=== PATIENT | male | born 1960 | race Caucasian/White ===

== ENCOUNTER 2022-05-13 16:25 | Emergency (ER) | payer OTHER ==
--- OUTSIDE RECORDS SUMMARY | 2022-05-13 16:31 | XMS REPORT | Continuity of Care Document ---
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 2021-01-27 09:14:00 170.2 cm [facility] Body weight 2021-01-27 09:14:00 77.565 kg [facility] BMI 2021-01-27 09:14:00 26.78 kg/m2 [facility] Procedures Procedure Date / Time Performed Performing Clinician [facility] e SARS-COV-2, FLU A/B, RSV 2021-01-27 13:08:00 Hailey Kay [facility] SARS-COV-2, FLU A/B, & RSV 2021-01-27 13:08:[address] [facility] CONSULT CLINICAL CASE 2021-01-27 11:19:[address] [facility] MANAGEMENT (RN/SW) CONSULT CLINICAL CASE 2021-01-27 10:58:00 ApfelLonnie [facility] MANAGEMENT (RN/SW) CBC/DIFF 2021-01-27 10:40:00 ApfelLonnie [facility] BASIC METABOLIC PANEL 2021-01-27 10:40:00 ApfelLonnie [facility] CBC 2021-01-27 10:40:00 ApfelLonnie [facility] 12 LEAD EKG 2021-01-27 09:15:33 [facility] TO PHYSICAL 2020-11-25 10:27:54 Wilian Hoffmann [facility] THERAPY BASIC METABOLIC PANEL 2020-11-23 07:02:00 [facility] 2020-11-22 16:10:[address] [facility] URINE DRUG SCREEN 2020-11-22 11:35:00 Dony Garza lt URINALYSIS 2020-11-22 11:35:[address] [facility] URINALYSIS 2020-11-22 11:35:00 [facility] SEQUENTIAL COMPRESSION 2020-11-22 09:54:00 [facility]-COV-2, FLU A/B, RSV 2020-11-22 07:10:00 O'Carlos Hurley [facility] CORONAVIRUS, COVID-19, SANDRINE 2020-11-22 07:10:00 OCarlos Britt [facility] 12 LEAD EKG 2020-11-22 07:09:33 [facility] VBG POC 2020-11-22 07:07:00 Sekou [facility] BMP POC 2020-11-22 07:07:00 Sekou [facility] CREATININE POC 2020-11-22 07:07:00 Sekou [facility] CBC/DIFF 2020-11-22 07:06:00 Carlos Martinez h COMPREHENSIVE METABOLIC 2020-11-22 07:06:00 Carlos [facility] PANEL PT/INR/PTT 2020-11-22 07:06:00 Carmen'Carlos Hurley h ALCOHOL, MEDICAL USE ONLY 2020-11-22 07:06:00 Carlos [facility] SALICYLATE 2020-11-22 07:06:00 Carlos Martinez h CBC 2020-11-22 07:06:00 Carlos Martinez h ALBUMIN 2020-11-22 07:06:00 Petra Bland h CK, TOTAL 2020-11-22 07:06:00 [facility]el [facility] CREATINE KINASE MB (CKMB) 2020-11-22 07:06:[address] [facility] CONSULT CLINICAL CASE 2020-11-22 07:05:51 Carlos [facility] MANAGEMENT (RN/SW) TROPONIN I POC 2020-11-22 07:05:00 Sekou [facility] BASIC METABOLIC PANEL 2020-07-11 21:28:00 [facility] CBC/DIFF 2020-07-11 21:28:00 Lisa Chahal CBC 2020-07-11 21:28:00 Lisa Chahal CORONAVIRUS, COVID-19, SANDRINE 2020-07-11 21:28:00 Noe Chahal Health CONSULT CLINICAL CASE 2020-07-11 18:14:55 Jocelyn Gonzalez [facility] MANAGEMENT (RN/SW) CONSULT CLINICAL CASE 2020-07-11 17:29:24 Alma Medrano [facility] MANAGEMENT (RN/SW) URINE DRUG SCREEN 2020-07-11 02:31:00 Vlad Duncan [facility] URINALYSIS 2020-07-11 02:31:00 Vlad Duncan [facility] URINALYSIS 2020-07-11 02:31:00 Vlad Duncan [facility] HEMOGLOBIN A1C 2020-06-11 11:15:00 Luz Dominguez [facility] LIPID PROFILE 2020-06-07 06:06:00 Janae Toussaint [facility] ECHG EKG PROC 12 LEAD EKG; 2020-06-06 12:20:[address] [facility] TRACING ONLY T URINALYSIS 2020-06-06 04:18:00 Christel Montoya [facility] URINALYSIS 2020-06-06 04:18:00 Christel Montoya [facility] URINE DRUG SCREEN 2020-06-06 04:18:00 Amisha Sanchez [facility] PT/INR/PTT 2020-06-06 02:36:00 Amisha Sanchez [facility] h CORONAVIRUS, COVID-19, SANDRINE 2020-06-06 02:35:00 Amisha Sanchez [facility] CONSULT CLINICAL CASE 2020-06-06 02:06:26 Amisha Sanchez [facility] MANAGEMENT (RN/SW) TROPONIN I POC 2020-06-06 01:01:[address] [facility] CBC/DIFF 2020-06-06 00:53:00 Christel Montoya [facility] LIVER PROFILE 2020-06-06 00:53:00 Christel Montoya [facility] BASIC METABOLIC PANEL 2020-06-06 00:53:00 Christel [facility] LIPASE 2020-06-06 00:53:00 Estephanie Montoyaissa [facility] HIV AG/AB COMBO ROUTINE 2020-06-06 00:53:00 Christel Montoya [facility] SCREENING CBC 2020-06-06 00:53:00 Christel Montoya [facility] ECHG EKG PROC 12 LEAD EKG; 2020-06-06 00:48:[address] [facility] TRACING ONLY Plan of Care Planned Activity Planned Date Details Comments Source Future Scheduled 2022-06-10 IMM Influenza Seasonal [facility] Test 00:00:00 (>/= 19 yrs) [code = IMM Influenza Seasonal (>/= 19 yrs)] Future Scheduled 2022-05-10 HEPATITIS B VACCINES Met [facility] Test 07:29:58 (1 of 3 - 3-dose series) [code = HEPATITIS B VACCINES (1 of 3 - 3-dose series)] Future Scheduled 2022-05-10 COVID-19 VACCINE (#1) [facility] Test 07:29:58 [code = COVID-19 VACCINE (#1)] Future Scheduled 2022-05-10 Pneumococcal Vaccine: [facility] Test 07:29:58 Pediatrics (0 to 5 Years) and At-Risk Patients (6 to 64 Years) (1 - PCV) [code = Pneumococcal Vaccine: Pediatrics (0 to 5 Years) and At-Risk Patients (6 to 64 Years) (1 - PCV)] Future Scheduled 2022-05-10 Hepatitis C screening [facility] Test 07:29:58 (procedure) [code = 449003816] Future Scheduled 2022-05-10 COLONOSCOPY SCREENING [facility] Test 07:29:58 [code = COLONOSCOPY SCREENING] Future Scheduled 2022-05-10 SHINGLES VACCINES (1 Met [facility] Test 07:29:58 of 2) [code = SHINGLES VACCINES (1 of 2)] Future Scheduled 2022-05-10 INFLUENZA VACCINE Method [facility] Test 07:29:58 [code = INFLUENZA VACCINE] Future Scheduled 2021-06-10 IMM Influenza Seasonal [facility] Test 00:00:00 Jun to November (>/= 19 yrs) [code = IMM Influenza Seasonal Jun to November (>/= 19 yrs)] Future Scheduled 2021-06-10 IMM Influenza Seasonal [facility] Test 00:00:00 Jun to November (>/= 19 yrs) [code = IMM Influenza Seasonal Oct to November (>/= 19 yrs)] Future Scheduled 2021-06-07 CORONARY ARTERY [facility] 00:00:00 DISEASE AGE 18 AND UP [code = CORONARY ARTERY DISEASE AGE 18 AND UP] Future Scheduled 2021-06-07 CORONARY ARTERY [facility] Test 00:00:00 DISEASE AGE 18 AND UP [code = CORONARY ARTERY DISEASE AGE 18 AND UP] Future Scheduled 2021-06-07 CORONARY ARTERY [facility] Test 00:00:00 DISEASE AGE 18 AND UP [code = CORONARY ARTERY DISEASE AGE 18 AND UP] Future Scheduled 2012 [facility] 00:00:00 malignant neoplasm of colon (procedure) [code = 198858054] Future Scheduled 2012 [facility] 00:00:00 malignant neoplasm of colon (procedure) [code = 495680413] Future Scheduled 2012 [facility] 00:00:00 malignant neoplasm of colon (procedure) [code = 331289806] Future Scheduled 1974 COVID-19 Vaccine (1) [facility] 00:00:00 [code = COVID-19 Vaccine (1)] Future Scheduled 1974 COVID-19 Vaccine (1) [facility] Test 00:00:00 [code = COVID-19 Vaccine (1)] Future Scheduled 1968 Imm Pneumococcal 0-64 [facility] Test 00:00:00 (1 - PCV) [code = Imm Pneumococcal 0-64 (1 - PCV)] Future Scheduled 1962 COVID-19 Vaccine (#1) [facility] Test 00:00:00 [code = COVID-19 Vaccine (#1)] Future Scheduled 1962 Fluoride Varnish [code [facility] Test 00:00:00 = Fluoride Varnish] Encounters Start End Encounter Admission Attending Care Care Encounter Source Date/Time Date/Time Type Type Clinicians Facility Department ID 2021-02-09 Inpatient [facility] [id number] [facility] 14:08:00 61 2021-02-09 Inpatient [facility] [id number] [facility] 14:08:00 61 2021-02-15 2021-02-15 Outpatient BATSHEVA SMITH [facility] [id number] [place] 00:00:00 00:00:00 Health 2021-02-10 2021-02-10 Outpatient ASHIA ANG [id number] [facility] 12:15:00 12:15:00 00 kathya Lau 2021-02-10 2021-02-10 Outpatient ASHIA ANG [id number] [facility] 12:15:00 12:15:00 00 kathya Lau 2021-02-01 2021-02-01 Outpatient KRZYSZTOF, [facility] [id number] [place] 00:00:00 00:00:00 [facility] 2021-01-25 2021-01-25 Outpatient JEANNIE, [facility] [id number] [place] 00:00:00 00:00:00 [facility] 2020-12-09 2020-12-10 Inpatient E MARY ANN, [facility] 7501 10:38:00 18:45:[address] [facility] 2020-12-08 2020-12-08 Emergency E WIA, [facility] 7500 10:41:00 14:56:[address] [facility] 2020-11-22 2020-11-22 Emergency DAVIS, [facility] [id number] [place] 07:10:32 07:10:34 MILY Limon 2020-09-05 2020-09-05 Emergency JENNIFFER LYNN [facility] [id number] [employer] 00:00:00 00:00:00 367 Method i 2020-08-03 2020-08-04 Emergency YOLANDA, [place] [address] [id number] [employer] 00:00:00 00:00:00 EBONY 408 Method i 2020-06-03 2020-06-03 Emergency 3 Jacquelyn, [facility] JOSE JUAN [id number] 15:44:00 16:35:00 [facility] 2020-06-03 2020-06-[address] [facility] JOSE JUAN [id number] 15:44:00 15:44:00 [id number] [facility] Results Test Description Test Time Test Comments Results Result Comments Source Drug Screen,Urine 2021-02-09 15:16:00 Test Item Value Reference Range Interpretation Comme nts PCP Phencyclidine Screen,Urine Negative Negative (test code = PCPU) Amphetamine Screen,Urine (test Positive Negative A Confirmation by GC/MS not code = AMPU) routinely perfo rmed. Ifconfirmation is required, an order must be p laced. Methadone Screen,Urine (test code Negative Negative = METHU) Opiate Screen,Urine (test code = Positive Negative A UOPIS) Barbituates Screen,Urine (test Negative Negative code = BARBU) Benzodiazepines Screen,Urine Positive Negative A (test code = UBENZS) Cocaine Screen,Urine (test code = Positive Negative A UCOCS) Cannabinoid Screen,Urine (test Positive Negative A code = UTHCS) Propoxyphene Screen, Urine (test Negative Negative code = UPROP) Coronavirus PCR, COVID19 [id number] 15:04:00 Test Item Value Reference Range Interpretation Comments Coronavirus PCR, For use under Emergency COVID19 Rapid (test Use Authorization (EUA) code = SARSCOV2) only. Coronavirus PCR, Reference Range: COVID19 Rapid (test Negative code = BZWHZCD25.1) SARS-CoV-2 PCR Result: Negative by PCR (test code = SARS-CoV-2 PCR Result:) COVID-19 Status: AsymptomaticComplete Blood Count Auto [id number] 14:57:00 Test Item Value Reference Range Interpretation Comments White Blood Count (test code = 11.0 x10 3/uL 4.4-10.5 H WBCT) Red Blood Count (test code = 4.76 x10 6/uL 4.10-5.70 N RBC) Hemoglobin (test code = HGBT) 14.6 g/dL 13.4-17.4 N Hematocrit (test code = HCTT) 46.0 % 38.7-52.0 N Mean Corpuscular Volume (test 96.60 fL 80.00-100.00 N code = MCV) Mean Corpuscular Hemoglobin 30.7 pg 27.0-32.5 N (test code = MCH) Mean Corpuscular HGB Conc 31.70 g/dL 32.00-37.50 L (test code = MCHC) RDW Coefficient of Variation 13.0 % 11.5-14.5 N (test code = RDWCV) Platelet Count (test code = 241.0 x10 3/uL 140.0-440.0 N PLTT) Mean Platelet Volume (test 10.1 fL code = MPV) Immature Granulocytes % (Auto) 0.3 % 0.0-5.0 N (test code = IMMGRAN%) Neutrophils % (Auto) (test 79.5 % 36.0-70.0 H code = NE%) Lymphocytes % (Auto) (test 14.6 % 12.0-44.0 N code = LY%) Monocytes % (Auto) (test code 4.8 % 0.0-11.0 N = MO%) Eosinophils % (Auto) (test 0.5 % 0.0-7.0 N code = EO%) Basophils % (Auto) (test code 0.3 % 0.0-2.0 N = BA%) Immature Granulocytes # (Auto) 0.03 x10 3/uL (test code = IMMGRAN#) Neutrophils # (Auto) (test 8.7 x10 3/uL 1.6-7.4 H code = NE#) Lymphocytes # (Auto) (test 1.61 x10 3/uL 0.50-4.60 N code = LY#) Monocytes # (Auto) (test code 0.53 x10 3/uL 0.00-1.20 N = MO#) Eosinophils # (Auto) (test 0.06 x10 3/uL 0.00-0.74 N code = EO#) Basophils # (Auto) (test code 0.03 x10 3/uL 0.00-0.21 N = BA#) nRBC Abs (test code = NRBCA) 0 nRBC Pct (test code = NRBCP) 0 % Comprehensive Metabolic [id number] 14:57:00 Test Item Value Reference Range Interpretation Comments SODIUM (test code = NA) 141.0 mmol/L 136.0-145.0 N Potassium,K (test code = K) 3.7 mmol/L 3.0-5.1 N Chloride (test code = CL) 111 mmol/L 98-107 H Carbon Dioxide (test code = 22 mmol/L 20-31 N CO2) Anion Gap (test code = GAP) 8 mmol/L 5-15 N Blood Urea Nitrogen (test code 10 mg/dL 9-23 N = BUN) Creatinine (test code = CREATT) 0.77 mg/dL 0.55-1.02 N Creatinine Clr Calc Pharmacy 106.97 mL/min (test code = CRCLPHA) Estimated GFR ( Anjelica > 60 mL/min/1.73m2 (test code = EGFRAA) Estimated GFR (Non Afr Anjelica > 60 mL/min/1.73m2 (test code = EGFRNAA) BUN/Creatinine Ratio (test code 13 ratio 10-20 N = BCRATIO) Glucose (test code = GLU) 83 mg/dL 74-106 N Osmolality,Calculated (test 289.5 code = OSMOC) Calcium (test code = CA) 8.8 mg/dL 8.3-10.6 N Bilirubin,Total (test code = 0.5 mg/dL 0.2-1.1 N BILIT) Aspartate Amino Transferase 41 U/L 0-34 H (test code = AST) Alanine Aminotransferase (test 28 U/L 10-49 N code = ALT) Total Protein (test code = TP) 6.7 g/dL 5.7-8.2 N Albumin Level (test code = ALB) 3.8 g/dL 3.2-4.8 N Globulin (test code = GLOB) 2.9 mg/dL 2.3-3.5 N Albumin/Globulin Ratio (test 1.3 ratio 0.8-2.0 N code = AGRATIO) Alkaline Phosphatase (test code 103 U/L 46-116 N = ALP) Ethanol [id number] 14:57:00 Test Item Value Reference Range Interpretation Comments Ethanol (test code = ETOH) 102 mg/dL Coronavirus (CoVID-19), Influenza A/B viral [id number] 14:07:00 Test Item Value Reference Range Interpretation Comments COVID-19 (SARS-COV-2) Not Detected Not Detected (test code = 08536-9) Influenza A (test code Not Detected Not Detected = 14374-1) Influenza B (test code Not Detected Not Detected = 62866-0) NIMA (test code = NIMA) INTERPRETATION: The thania SARS-CoV-2 & Influenza A/B assay uses real-time reverse transcriptase polymerase chain reaction (RT-PCR) technology to rapidly detect and differentiate between SARS-CoV-2, influenza A, and influenza B viruses from nasopharyngeal and nasal swab specimens. Positive results for any one of the three viruses are indicative of active infection. Influenza A negative and Influenza B negative results should be considered presumptive in samples that have a positive SARS-CoV-2 result. Negative results for SARS-CoV-2 virus do not preclude SARS-CoV-2 infection and should not be used as the sole basis for patient management decisions. Clinical correlation with patient history and other diagnostic information is recommended. For invalid results, a second sample should be submitted for repeat testing. COMMENT: In accordance with the FDA's guidance document "Policy for Diagnostic Tests for Coronavirus Disease-2019 during the Public Health Emergency", this test was developed, and its performance characteristics were verified by the [facility] molecular diagnostics laboratory and is authorized for clinical diagnostic use. This laboratory is certified under the Clinical Laboratory Improvement Amendments (CLIA) as qualified to perform high complexity clinical laboratory testing. Lab Interpretation Normal (test code = 39264-9) [facility]), Influenza A/B viral [id number] 14:07:00 Test Item Value Reference Range Interpretation Comments COVID-19 (SARS-COV-2) Not Detected Not Detected (test code = 63147-3) Influenza A (test code Not Detected Not Detected = 69136-6) Influenza B (test code Not Detected Not Detected = 92741-2) NIMA (test code = NIMA) INTERPRETATION: The thania SARS-CoV-2 & Influenza A/B assay uses real-time reverse transcriptase polymerase chain reaction (RT-PCR) technology to rapidly detect and differentiate between SARS-CoV-2, influenza A, and influenza B viruses from nasopharyngeal and nasal swab specimens. Positive results for any one of the three viruses are indicative of active infection. Influenza A negative and Influenza B negative results should be considered presumptive in samples that have a positive SARS-CoV-2 result. Negative results for SARS-CoV-2 virus do not preclude SARS-CoV-2 infection and should not be used as the sole basis for patient management decisions. Clinical correlation with patient history and other diagnostic information is recommended. For invalid results, a second sample should be submitted for repeat testing. COMMENT: In accordance with the FDA's guidance document "Policy for Diagnostic Tests for Coronavirus Disease-2019 during the Public Health Emergency", this test was developed, and its performance characteristics were verified by the [facility] molecular diagnostics laboratory and is authorized for clinical diagnostic use. This laboratory is certified under the Clinical Laboratory Improvement Amendments (CLIA) as qualified to perform high complexity clinical laboratory testing. Lab Interpretation Normal (test code = 29704-7) [facility] Metabolic [id number] 11:41:00 Test Item Value Reference Range Interpretation Comments Sodium (test code = 141 mmol/L 096-663 2503-2) Potassium (test code = 3.6 mmol/L 3.5-5.1 2823-3) Chloride (test code = 105 mmol/L 98-107 2075-0) CO2 (test code = 25 mmol/L 21-31 34961585) Urea Nitrogen (test 17.0 mg/dL 7-25 code = 91739041) Creatinine (test code = 0.8 mg/dL 0.7-1.3 24989185) Glucose (test code = 77 mg/dL 70-110 21930603) Calcium (test code = 9.3 mg/dL 8.6-10.3 62433310) eGFR If non- Am >90 See_Comment [Aut omated message] (test code = 62618963) The s ystem which generated this result transmit romaine reference range : >=90 mL/min/1.7 3 m2. The reference r octaviano was not used to interpret this result as normal/abnormal . Anion Gap (test code = 11 mmol/L 01-23 35264928) Lab Interpretation Normal (test code = 13710-3) [facility] Metabolic [id number] 11:41:00 Test Item Value Reference Range Interpretation Comments Sodium (test code = 141 mmol/L 073-608 8582-2) Potassium (test code = 3.6 mmol/L 3.5-5.1 2823-3) Chloride (test code = 105 mmol/L 98-107 2075-0) CO2 (test code = 25 mmol/L 40862150) Urea Nitrogen (test 17.0 mg/dL 725 code = 08766158) Creatinine (test code = 0.8 mg/dL 0.7-1.3 97118070) Glucose (test code = 77 mg/dL 70-110 94261004) Calcium (test code = 9.3 mg/dL 8.6-10.3 90320231) eGFR If non- Am >90 See_Comment [Aut omated message] (test code = 73677645) The s ystem which generated this result transmit romaine reference range : >=90 mL/min/1.7 3 m2. The reference r octaviano was not used to interpret this result as normal/abnormal . Anion Gap (test code = 11 mmol/L 01-23 37904791) Lab Interpretation Normal (test code = 97388-4) [id number] 11:17:00 Test Item Value Reference Range Interpretation Comments WBC (test code = 6690-2) 8.9 K/uL 4.5-12 RBC (test code = 789-8) 4.92 See_Comment [Au tomated message] The system [employer] generated this result transmit romaine reference range : 4.60 - 6.20 M/u L. The reference r octaviano was not used to interpret this result as normal/abnormal . Hemoglobin (test code = 15.0 g/dL 14-18 718-7) Hematocrit (test code = 45.7 % 40-54 4544-3) MCV (test code = 787-2) 92.9 fL 82-92 H MCH (test code = 785-6) 30.5 pg 27-31 MCHC (test code = 786-4) 32.8 g/dL 32-36 RDW (test code = 46.0 fL 35.1-43.9 H 75581-2) Platelet (test code = 243 K/uL 150-400 777-3) Mean Platelet Volume 9.8 fL 9.4-12.4 (test code = 96471-4) Percent NRBC (test code 0.0 % = 03688588) Neutrophil (test code = 78.3 % 34-67.9 H 770-8) Lymphs (test code = 11.2 % 21.8-50 L 736-9) Monocytes (test code = 9.1 % 5.3-12 5905-5) Eos (test code = 713-8) 0.6 % 0.8-5 L Basos (test code = 0.3 % 0.2-1.2 706-2) Immature Granulocytes 0.5 % 0-0.5 (test code = 00241505) Neutrophils (Absolute) 6.94 K/uL 1.78-5.36 H (test code = 76465117) Lymphs (Absolute) (test 0.99 K/uL 1.32-3.57 L code = 61845077) Monocytes(Absolute) 0.81 K/uL 0.3-0.82 (test code = 67005610) Eos (Absolute) (test 0.05 K/uL 0.04-0.54 code = 09893489) Baso (Absolute) (test 0.03 K/uL 0.01-0.08 code = 18625409) Immature Grans (Abs) 0.04 K/uL 0-0.03 H (test code = 60406862) Absolute NRBC (test code 0.00 K/uL = 89949330) Lab Interpretation (test Abnormal code = 33202-0) [facility]/[id number] 11:17:00 Test Item Value Reference Range Interpretation Comments WBC (test code = 6690-2) 8.9 K/uL 4.5-12 RBC (test code = 789-8) 4.92 See_Comment [Au tomated message] The system [employer] generated this result transmit romaine reference range : 4.60 - 6.20 M/u L. The reference r octaviano was not used to interpret this result as normal/abnormal . Hemoglobin (test code = 15.0 g/dL 14-18 718-7) Hematocrit (test code = 45.7 % 40-54 4544-3) MCV (test code = 787-2) 92.9 fL 82-92 H MCH (test code = 785-6) 30.5 pg 27-31 MCHC (test code = 786-4) 32.8 g/dL 32-36 RDW (test code = 46.0 fL 35.1-43.9 H 50924-6) Platelet (test code = 243 K/uL 150-400 777-3) Mean Platelet Volume 9.8 fL 9.4-12.4 (test code = 57827-8) Percent NRBC (test code 0.0 % = 10364239) Neutrophil (test code = 78.3 % 34-67.9 H 770-8) Lymphs (test code = 11.2 % 21.8-50 L 736-9) Monocytes (test code = 9.1 % 5.3-12 5905-5) Eos (test code = 713-8) 0.6 % 0.8-5 L Basos (test code = 0.3 % 0.2-1.2 706-2) Immature Granulocytes 0.5 % 0-0.5 (test code = 01988020) Neutrophils (Absolute) 6.94 K/uL 1.78-5.36 H (test code = 46228972) Lymphs (Absolute) (test 0.99 K/uL 1.32-3.57 L code = 29092499) Monocytes(Absolute) 0.81 K/uL 0.3-0.82 (test code = 12271677) Eos (Absolute) (test 0.05 K/uL 0.04-0.54 code = 25329766) Baso (Absolute) (test 0.03 K/uL 0.01-0.08 code = 19605469) Immature Grans (Abs) 0.04 K/uL 0-0.03 H (test code = 16205460) Absolute NRBC (test code 0.00 K/uL = 93073600) Lab Interpretation (test Abnormal code = 07941-0) [place] [address] LEAD [id number] 09:15:[address] [facility] Test Date: 3209-93-76Can Name: LAYLA KHAN Department: 5520Patient ID: [id number] Room: Gender: M Chief Security Officer: [id number]: 1960 Requested By: NEDRA CISNEROS Order Number: [id number] Reading MD: Tk Nichole MeasurementsIntervals [place] Rate: 96 P: 67PR: 146 QRS: -47QRSD: 83 T: 53QT: 331 QTc: 384 Interpretive StatementsSINUS RHYTHMPOSSIBLE RIGHT VENTRICULAR CONDUCTION DELAY [RSR (QR) IN V1/V2]LEFT ANTERIOR FASCICULAR BLOCK [QRS AXIS <= -45, QR IN I, RS IN II]Electronically Signed On 01-27-2021 9:27:41 CDT by Tk [place] [address] LEAD [id number] 09:15:[address] [facility] Test Date: 2898-54-45Dna Name: LAYLA KHAN Department: 5520Patient ID: [id number] Room: Gender: M Chief Security Officer: [id number]: 1960 Requested By: NEDRA CISNEROS Order Number: [id number] Reading MD: Tk Nichole MeasurementsIntervals [place] Rate: 96 P: 67PR: 146QRS: -47QRSD: 83 T: 53QT: 331 QTc: 384 Interpretive StatementsSINUS RHYTHMPOSSIBLE RIGHT VENTRICULAR CONDUCTION DELAY [RSR (QR) IN V1/V2]LEFT ANTERIOR FASCICULAR BLOCK [QRS AXIS <= -45, QR IN I, RSIN II]Electronically Signed On 01-27-2021 9:27:41 CDT by Kylienadia JamesGeorginaunm [facility] [employer]/[id number] 16:53:00 Test Item Value Reference Range Interpretation Comments PT (test code = 5902-2) 13.6 See_Comment [Au tomated message] The system [employer] generated this result transmitted ref erence range: 11.7 - 1 4.5 Seconds. The re ference range was not u sed to interpret this result as normal/abnor mal. INR (test code = 1.1 Refer to INR 2.0 - 3.0 f or moderate 00049608) ranges intensity anticoagulation 2.5 - 3.5 for high in tensity anticoagulation Lab Interpretation Normal (test code = 73254-7) [employer]/[id number] 16:53:00 Test Item Value Reference Range Interpretation Comments PT (test code = 5902-2) 13.6 See_Comment [Au tomated message] The system [employer] generated this result transmitted ref erence range: 11.7 - 1 4.5 Seconds. The re ference range was not u sed to interpret this result as normal/abnor mal. INR (test code = 1.1 Refer to INR 2.0 - 3.0 f or moderate 12740936) ranges intensity anticoagulation 2.5 - 3.5 for high in tensity anticoagulation Lab Interpretation Normal (test code = 67011-0) [facility] [id number] 12:56:00 Test Item Value Reference Range Interpretation Comments pH, Ur (test code = 6.0 91485354) Opiate, Ur (test code Negative Negative Calibr ated Standard: = 57402-3) Morphine Positi ve if urine level > o r = 300 ng/dL Amphetamine (test code Negative Negative Calib rated Standard: = 49575-9) D-Methamphetami ne Positive if uri ne level > or = 1000 ng/ mL Barbiturate (test code Negative Negative Calib rated Standard: = 74371-8) Secobarbital Po sitive if urine level is > or = 200 ng/mL Benzodiazepine (test Negative Negative Calibra romaine Standard: code = 18935-0) Lormethazepa m Positive if urine level is > or = 200 ng/mL Cocaine (test code = Positive Negative A Calibra romaine Standard: 24270-1) Benzoylecgonine Positive if uri ne level > or = 300 ng/d L PCP (test code = Negative Negative Calibrated Standard: 72995-0) Phencyclidine P ositive if urine level > or = 25 ng/dL Cannabinoid (test code Positive Negative A Calib rated Standard: 11 = 44404-7) nor-delta(9)-TH C carboxylic acid Positive if uri ne level > or = 50 ng/mL Lab Interpretation Abnormal (test code = 77227-0) [facility] [id number] 12:56:00 Test Item Value Reference Range Interpretation Comments pH, Ur (test code = 6.0 03322754) Opiate, Ur (test code Negative Negative Calibr ated Standard: = 81188-7) Morphine Positi ve if urine level > o r = 300 ng/dL Amphetamine (test code Negative Negative Calib rated Standard: = 11842-0) D-Methamphetami ne Positive if uri ne level > or = 1000 ng/ mL Barbiturate (test code Negative Negative Calib rated Standard: = 19692-9) Secobarbital Po sitive if urine level is > or = 200 ng/mL Benzodiazepine (test Negative Negative Calibra romaine Standard: code = 37983-8) Lormethazepa m Positive if urine level is > or = 200 ng/mL Cocaine (test code = Positive Negative A Calibra romaine Standard: 12980-9) Benzoylecgonine Positive if uri ne level > or = 300 ng/d L PCP (test code = Negative Negative Calibrated Standard: 18771-6) Phencyclidine P ositive if urine level > or = 25 ng/dL Cannabinoid (test code Positive Negative A Calib rated Standard: 11 = 26597-3) nor-delta(9)-TH C carboxylic acid Positive if uri ne level > or = 50 ng/mL Lab Interpretation Abnormal (test code = 13295-9) [facility] [id number] 12:14:00 Test Item Value Reference Range Interpretation Comments COVID-19 Not Detected Not Detected INTERPRETATION: (SARS-COV-2) (test No detect able code = 67210-6) levels of SARS-CoV-2 Coronavirus (COVID-19) were present in this patient's sampl e by this test. A not detected result does not exclude the possibility of active infectio n with this virus due to other factors that ma y affect the results such as a poorly collected sample, viral titers below th e limit of detection of th e assay, and the infrequent possibility of inhibitors in the sample. Thi s result should b e interpreted in conjunction wit h clinical, radiographic, and other laboratory findings and should not be used as the andrew e indicator of active infectio n with SARS-CoV-2 Coronavirus (COVID-19). NIMA (test code = COMMENT: This NIMA) [employer] SARS-CoV-2 molecular diagnostic assay utilizes Anesthesia Assistant Mediated Amplification (TMA) technology to rapidly detect the SARS-CoV-2 (COVID-19) virus from respiratory samples. In accordance with the FDA's guidance document "Policy for Diagnostic Tests for Coronavirus Disease-2019 during the Public Health Emergency", this test was developed, and its performance characteristics were verified by the [facility] molecular diagnostics laboratory and is authorized for clinical diagnostic use. This laboratory is certified under the Clinical Laboratory Improvement Amendments (CLIA) as qualified to perform high complexity clinical laboratory testing. Lab Interpretation Normal (test code = 19690-8) [facility], [id number] 12:14:00 Test Item Value Reference Range Interpretation Comments COVID-19 Not Detected Not Detected INTERPRETATION: (SARS-COV-2) (test No detect able code = 18582-0) levels of SARS-CoV-2 Coronavirus (COVID-19) were present in this patient's sampl e by this test. A not detected result does not exclude the possibility of active infectio n with this virus due to other factors that ma y affect the results such as a poorly collected sample, viral titers below th e limit of detection of th e assay, and the infrequent possibility of inhibitors in the sample. Thi s result should b e interpreted in conjunction wit h clinical, radiographic, and other laboratory findings and should not be used as the andrew e indicator of active infectio n with SARS-CoV-2 Coronavirus (COVID-19). NIMA (test code = COMMENT: This NIMA) [employer] SARS-CoV-2 molecular diagnostic assay utilizes Anesthesia Assistant Mediated Amplification (TMA) technology to rapidly detect the SARS-CoV-2 (COVID-19) virus from respiratory samples. In accordance with the FDA's guidance document "Policy for Diagnostic Tests for Coronavirus Disease-2019 during the Public Health Emergency", this test was developed, and its performance characteristics were verified by the [facility] molecular diagnostics laboratory and is authorized for clinical diagnostic use. This laboratory is certified under the Clinical Laboratory Improvement Amendments (CLIA) as qualified to perform high complexity clinical laboratory testing. Lab Interpretation Normal (test code = 02771-0) [facility] HospitalAcojhaHxbxweorus9550-49-02 12:01:00 Test Item Value Reference Range Interpretation Comments Color (test code = Yellow Colorless, Straw, 88009855) Yellow Clarity (test code = Clear Clear 77427208) Spec Limestone, Ur (test 1.023 1.001-1.035 code = 88667052) pH, Ur (test code = 6.0 5.0-8.0 42097423) Protein, Ur (test code 1+ Negative mg/dL A = 08714280) Glucose, Ur (test code Negative Negative mg/dL = 88560352) Ketone, Ur (test code = trace Negative mg/dL A 01381645) Bilirubin, Ur (test Negative Negative mg/dL code = 71684685) Nitrite, Ur (test code Negative Negative = 50704312) Leukocyte (test code = Negative Negative mg/dL 15171941) Blood, Ur (test code = Negative Negative mg/dL 37713527) RBC (test code = <1 See_Comment [Automated message] 86683755) The system [employer] generated this result transmit romaine reference range : 0 - 4 /HPF. The reference range was not used to interpret this result as normal/abnormal . WBC (test code = 1 See_Comment [Automated message] 06372975) The system [employer] generated this result transmit romaine reference range : 0 - 5 /HPF. The reference range was not used to interpret this result as normal/abnormal . Mucous (test code = Present None seen /HPF A 55272785) Urobilinogen, Ur (test <1.0 See_Comment [Aut omated message] code = 95869427) The system which generated this result transmit romaine reference range : <1.0 EU/dL. The reference range was not used to interpret this result as normal/abnormal . Lab Interpretation Abnormal (test code = 46760-4) [facility] HospitalJkciazGuwasbwvol3608-00-13 12:01:00 Test Item Value Reference Range Interpretation Comments Color (test code = Yellow Colorless, Straw, 84993013) Yellow Clarity (test code = Clear Clear 23140090) Spec Limestone, Ur (test 1.023 1.001-1.035 code = 77828548) pH, Ur (test code = 6.0 5.0-8.0 74621951) Protein, Ur (test code 1+ Negative mg/dL A = 96688463) Glucose, Ur (test code Negative Negative mg/dL = 58754357) Ketone, Ur (test code = trace Negative mg/dL A 68402070) Bilirubin, Ur (test Negative Negative mg/dL code = 74078958) Nitrite, Ur (test code Negative Negative = 69133676) Leukocyte (test code = Negative Negative mg/dL 88527697) Blood, Ur (test code = Negative Negative mg/dL 54052670) RBC (test code = <1 See_Comment [Automated message] 91701037) The system [employer] generated this result transmit romaine reference range : 0 - 4 /HPF. The reference range was not used to interpret this result as normal/abnormal . WBC (test code = 1 See_Comment [Automated message] 25383358) The system [employer] generated this result transmit romaine reference range : 0 - 5 /HPF. The reference range was not used to interpret this result as normal/abnormal . Mucous (test code = Present None seen /HPF A 97855232) Urobilinogen, Ur (test <1.0 See_Comment [Aut omated message] code = 93996473) The system which generated this result transmit romaine reference range : <1.0 EU/dL. The reference range was not used to interpret this result as normal/abnormal . Lab Interpretation Abnormal (test code = 17531-4) [facility] HospitalYzgbjjMNQO4323-49-06 11:47:00 Test Item Value Reference Range Interpretation Comments CKMB (test code = 13.0 ng/mL 0.6-6.3 H 06860791) CKMB Index (test code = 2.5 See_Comment [Au tomated message] 14470796) The system [employer] generated this result transmit romaine reference range : <=2.5. The refe rence range was not u sed to interpret th is result as normal/abnormal . Lab Interpretation Abnormal (test code = 80765-2) [facility] HospitalVbfphdJUVT1996-73-72 11:47:00 Test Item Value Reference Range Interpretation Comments CKMB (test code = 13.0 ng/mL 0.6-6.3 H 08609019) CKMB Index (test code = 2.5 See_Comment [Au tomated message] 85494322) The system [employer] generated this result transmit romaine reference range : <=2.5. The refe rence range was not u sed to interpret th is result as normal/abnormal . Lab Interpretation Abnormal (test code = 77697-6) [facility] HospitalGsnkzfBngjpsl5458-45-61 11:05:00 Test Item Value Reference Range Interpretation Comments Albumin (test code = 01938-4) 3.9 g/dL 4.2-5.5 L Lab Interpretation (test code = Abnormal 83757-6) [facility] HospitalWpueikQjkapxy4365-94-39 11:05:00 Test Item Value Reference Range Interpretation Comments Albumin (test code = 07000-9) 3.9 g/dL 4.2-5.5 L Lab Interpretation (test code = Abnormal 85911-9) [facility], [id number] 10:57:00 Test Item Value Reference Range Interpretation Comments CK (test code = 24179633) 517 U/L 30-223 H Lab Interpretation (test code = Abnormal 36588-0) [facility] [id number] 10:57:00 Test Item Value Reference Range Interpretation Comments CK (test code = 72965800) 517 U/L 30-223 H Lab Interpretation (test code = Abnormal 99850-7) [facility] HospitalOcvbvgQzvbqmy8273-81-84 08:16:00 Test Item Value Reference Range Interpretation Comments ALCOHOL, SERUM - RESULT (BKR) (test 0.01 g/dL <0.10 code = 74967612) Lab Interpretation (test code = Normal 78860-0) [facility] HospitalBgxgtsRpxnzav6789-50-77 08:16:00 Test Item Value Reference Range Interpretation Comments ALCOHOL, SERUM - RESULT (BKR) (test 0.01 g/dL <0.10 code = 23294116) Lab Interpretation (test code = Normal 58903-9) [facility] HospitalGlokwxFsuaslaukx9059-03-35 08:15:00 Test Item Value Reference Range Interpretation Comments Salicylate (test code = 76335711) <3.0 2.8-30 Lab Interpretation (test code = Normal 79463-2) [facility] HospitalHltxfyWzgdvyoegq4178-00-26 08:15:00 Test Item Value Reference Range Interpretation Comments Salicylate (test code = 44470747) <3.0 2.8-30 Lab Interpretation (test code = Normal 78090-9) [facility] HospitalLmtdlbNfnzvuzwsqgqp1271-55-18 08:14:00 Test Item Value Reference Range Interpretation Comments Acetaminophen (test <10.00 10-30 L Please r efer to code = 33952898) acetaminoph en nomogram. Lab Interpretation Abnormal (test code = 62341-8) [facility] HospitalDwxjweQncziodipmzum7146-84-59 08:14:00 Test Item Value Reference Range Interpretation Comments Acetaminophen (test <10.00 10-30 L Please r efer to code = 57239271) acetaminoph en nomogram. Lab Interpretation Abnormal (test code = 29621-0) [facility] HospitalCom[facility] Metab Pnl(Excludes DBIL)2020-11-22 08:13:00 Test Item Value Reference Range Interpretation Comments Sodium (test code = 142 mmol/L 626-521 3638-2) Potassium (test code = 3.8 mmol/L 3.5-5.1 2823-3) Chloride (test code = 105 mmol/L 98-107 2075-0) CO2 (test code = 29 mmol/L 21-31 26692143) Glucose (test code = 125 mg/dL 70-110 H 44258223) Calcium (test code = 8.9 mg/dL 8.6-10.3 80814249) Urea Nitrogen (test 11.0 mg/dL 7-25 code = 18026040) Creatinine (test code = 0.9 mg/dL 0.7-1.3 83304519) Alkaline Phosphatase 85 U/L 34-104 (test code = 73210669) ALT (test code = 35 U/L 7-52 23702312) AST (test code = 47 U/L 13-39 H 57395724) Total Protein (test 6.6 g/dL 6-8.3 code = 2885-2) eGFR If non- Am 87 See_Comment L [Aut omated message] (test code = 26226716) The s ystem which generated this result transmit romaine reference range : >=90 mL/min/1.7 3 m2. The reference r octaviano was not used to interpret this result as normal/abnormal . Albumin (test code = 3.9 g/dL 4.2-5.5 L 97912-5) Anion Gap (test code = 8 mmol/L 5-16 29523224) Lab Interpretation Abnormal (test code = 67479-1) [facility] DBIL)2020-11-22 08:13:00 Test Item Value Reference Range Interpretation Comments Sodium (test code = 142 mmol/L 111-753 1079-2) Potassium (test code = 3.8 mmol/L 3.5-5.1 2823-3) Chloride (test code = 105 mmol/L 98-107 2075-0) CO2 (test code = 29 mmol/L 21-31 59563212) Glucose (test code = 125 mg/dL 70-110 H 59539401) Calcium (test code = 8.9 mg/dL 8.6-10.3 46848421) Urea Nitrogen (test 11.0 mg/dL 7-25 code = 83461057) Creatinine (test code = 0.9 mg/dL 0.7-1.3 42278931) Alkaline Phosphatase 85 U/L 34-104 (test code = 27002423) ALT (test code = 35 U/L 7-52 83794459) AST (test code = 47 U/L 13-39 H 75738079) Total Protein (test 6.6 g/dL 6-8.3 code = 2885-2) eGFR If non- Am 87 See_Comment L [Aut omated message] (test code = 82782816) The s ystem which generated this result transmit romaine reference range : >=90 mL/min/1.7 3 m2. The reference r octaviano was not used to interpret this result as normal/abnormal . Albumin (test code = 3.9 g/dL 4.2-5.5 L 80513-4) Anion Gap (test code = 8 mmol/L 5-16 53852839) Lab Interpretation Abnormal (test code = 98766-1) [facility] HealthPT/INR/[id number] 07:44:00 Test Item Value Reference Range Interpretation Comments PT (test code = 5902-2) 14.0 See_Comment [Au tomated message] The system [employer] generated this result transmitted ref erence range: 11.7 - 1 4.5 Seconds. The re ference range was not u sed to interpret this result as normal/abnor mal. INR (test code = 1.1 Refer to INR 2.0 - 3.0 f or moderate 14142722) ranges intensity anticoagulation 2.5 - 3.5 for high in tensity anticoagulation PTT (test code = 28.2 See_Comment The recomme nded 08814117) therapuetic ran ge is an APTT 61-103 sec onds which correspon ds to 0.3-0.7 anti Xa u/ml. [Automated mess age] The system which ge nerated this result tra nsmitted reference range : 23.9 - 36.0 Seconds. T he reference range was not used to interpr et this result as normal/abnormal . Lab Interpretation Normal (test code = 59053-7) [facility] HealthPT/INR/[id number] 07:44:00 Test Item Value Reference Range Interpretation Comments PT (test code = 5902-2) 14.0 See_Comment [Au tomated message] The system [employer] generated this result transmitted ref erence range: 11.7 - 1 4.5 Seconds. The re ference range was not u sed to interpret this result as normal/abnor mal. INR (test code = 1.1 Refer to INR 2.0 - 3.0 f or moderate 65209126) ranges intensity anticoagulation 2.5 - 3.5 for high in tensity anticoagulation PTT (test code = 28.2 See_Comment The recomme nded 90316998) therapuetic ran ge is an APTT 61-103 sec onds which correspon ds to 0.3-0.7 anti Xa u/ml. [Automated mess age] The system which ge nerated this result tra nsmitted reference range : 23.9 - 36.0 Seconds. T he reference range was not used to interpr et this result as normal/abnormal . Lab Interpretation Normal (test code = 77795-0) [facility] TROPONIN I POC docked fyxkqo3972-93-30 07:17:00 Test Item Value Reference Range Interpretation Comments Troponin POC (test code 0.02 ng/mL 0-0.08 Phys ician Notified = 50988715) Lab Interpretation (test Normal code = 37854-2) [facility] TROPONIN I POC docked [id number] 07:17:00 Test Item Value Reference Range Interpretation Comments Troponin POC (test code 0.02 ng/mL 0-0.08 Phys ician Notified = 34059200) Lab Interpretation (test Normal code = 11325-1) [facility] CREATININE POC docked [id number] 07:11:00 Test Item Value Reference Range Interpretation Comments Creatinine POC (test 0.9 mg/dL 0.6-1.3 Physici an Notified code = 14335002) eGFR If non- Am >90 See_Comment [Aut omated message] (test code = 28465363) The s ystem which generated this result transmit romaine reference range : >=90 mL/min/1.7 3 m2. The reference r octaviano was not used to interpret this result as normal/abnormal . Lab Interpretation (test Normal code = 34689-0) [facility] CREATININE POC docked krtfaj3975-89-10 07:11:00 Test Item Value Reference Range Interpretation Comments Creatinine POC (test 0.9 mg/dL 0.6-1.3 Physici an Notified code = 64555953) eGFR If non- Am >90 See_Comment [Aut omated message] (test code = 19600777) The s ystem which generated this result transmit romaine reference range : >=90 mL/min/1.7 3 m2. The reference r octaviano was not used to interpret this result as normal/abnormal . Lab Interpretation (test Normal code = 20122-3) [facility] BMP POC docked [id number] 07:10:00 Test Item Value Reference Range Interpretation Comments Sodium POC (test code = 143 mmol/L 136-145 68892792) Potassium POC (test code 3.8 mmol/L 3.5-5.1 = 58433327) Chloride POC (test code 105 mmol/L 98-107 = 99043379) TCO2 POC (test code = 31 mmol/L 21-32 Physic shad Notified 84197613) Urea Nitrogen POC (test 12 mg/dL 7-18 code = 70591236) Glucose POC (test code = 118 mg/dL 74-106 H 52460918) Hemoglobin POC (test 15.0 g/dL 12-16 code = 21278442) Hematocrit POC (test 44.0 % 37-47 code = 03970589) Lab Interpretation (test Abnormal code = 02356-1) [facility] VBG POC docked [id number] 07:10:00 Test Item Value Reference Range Interpretation Comments pH, Alcon POC (test code 7.43 7.33-7.43 = 13158348) pCO2,Alcon POC (test code 44.8 See_Comment [Au tomated = 77666480) message] The sy stem which generated this result transmitted reference range : 38 - 50 mmHg. The reference range was not used to interpret this result as normal/abnormal . PO2, Venous POC (BKR) 22 See_Comment L [Auto mated (test code = 45966024) messa ge] The system which generated this result transmitted reference range : 50 - 75 mm Hg. The reference range was not used to interpret this result as normal/abnormal . Ionized Calcium POC 1.12 mmol/L 1.15-1.29 L (test code = 24118931) HCO3, Alcon POC (test 30 mmol/L 22-26 H code = 26485269) TCO2 POC (test code = 31 mmol/L 21-32 40910849) Base Excess Alcon POC 4 mmol/L (test code = 88282473) Sample Type (test code IVEN Physi yoli Notified = 28321413) % Sat, Alcon POC (test 37 % code = 31070587) Lab Interpretation Abnormal (test code = 12099-9) [facility] BMP POC docked [id number] 07:10:00 Test Item Value Reference Range Interpretation Comments Sodium POC (test code = 143 mmol/L 136-145 46917732) Potassium POC (test code 3.8 mmol/L 3.5-5.1 = 93536859) Chloride POC (test code 105 mmol/L 98-107 = 77054616) TCO2 POC (test code = 31 mmol/L 21-32 Physic shad Notified 98028103) Urea Nitrogen POC (test 12 mg/dL 7-18 code = 99895207) Glucose POC (test code = 118 mg/dL 74-106 H 05989464) Hemoglobin POC (test 15.0 g/dL 12-16 code = 39991845) Hematocrit POC (test 44.0 % 37-47 code = 85569706) Lab Interpretation (test Abnormal code = 59700-0) [facility] VBG POC docked [id number] 07:10:00 Test Item Value Reference Range Interpretation Comments pH, Alcon POC (test code 7.43 7.33-7.43 = 08123317) pCO2,Alcon POC (test code 44.8 See_Comment [Au tomated = 89299719) message] The sy stem which generated this result transmitted reference range : 38 - 50 mmHg. The reference range was not used to interpret this result as normal/abnormal . PO2, Venous POC (BKR) 22 See_Comment L [Auto mated (test code = 03047326) messa ge] The system which generated this result transmitted reference range : 50 - 75 mm Hg. The reference range was not used to interpret this result as normal/abnormal . Ionized Calcium POC 1.12 mmol/L 1.15-1.29 L (test code = 26381733) HCO3, Alcon POC (test 30 mmol/L 22-26 H code = 38460351) TCO2 POC (test code = 31 mmol/L 21-32 17671705) Base Excess Alcon POC 4 mmol/L (test code = 77799267) Sample Type (test code IVEN Physi yoli Notified = 03539459) % Sat, Alcon POC (test 37 % code = 92992821) Lab Interpretation Abnormal (test code = 37234-6) [place] [address] LEAD [id number] 07:09:[address] [facility] Test Date: [id number] Name: LAYLA KHAN Department: 5520Patient ID: [id number] Room: Gender: Chief Security Officer: [id number]: 1960 Requested By: SEKOU HUITRON Order Number: [id number] Jovani MD: Bren Beal MeasurementsIntervals [place] Rate: 88 P: 59PR: 164 QRS: -22QRSD: 104 T: 53QT: 349 QTc: 424 Interpretive StatementsSINUS RHYTHMBORDERLINE LEFT AXIS DEVIATIONINCOMPLETE RIGHT BUNDLE BRANCH BLOCKElectronically Signed On 11-22-2020 9:01:58 CDT by Bren AmerpagesholliIdc91712 LEAD [id number] 07:09:3312 LEAD EKG FOR [facility] Test Date: [id number] Name: LAYLA KHAN Department: 5520Patient ID: [id number] Room: Gender: Chief Security Officer: [id number]: 1960 Requested By: SEKOU HUITRON Order Number: [id number] Reading MD: Bren Beal MeasurementsIntervals [place] Rate: 88 P: 59PR: 164 QRS: -22QRSD: 104 T: 53QT: 349 QTc: 424 Interpretive StatementsSINUS RHYTHMBORDERLINE LEFT AXIS DEVIATIONINCOMPLETE RIGHT BUNDLE BRANCH BLOCKElectronically Signed On 11-22-2020 9:01:58 CDT by AquirisHemoglobin [id number] 12:24:00 Test Item Value Reference Range Interpretation Comments Hemoglobin A1c (test code = 4548-4) 5.4 % 4.3-6.1 Estimated Average Glucose (test 108 mg/dL 70-110 code = 20866158) Lab Interpretation (test code = Normal 72621-1) [facility] [id number] 12:24:00 Test Item Value Reference Range Interpretation Comments Hemoglobin A1c (test code = 4548-4) 5.4 % 4.3-6.1 Estimated Average Glucose (test 108 mg/dL 70-110 code = 30440497) Lab Interpretation (test code = Normal 60854-7) [facility] Kxmtfhv6257-30-83 06:59:00 Test Item Value Reference Range Interpretation Comments Cholesterol (test code 166.0 mg/dL See_Comment [Aut omated = 2093-3) message] The sy stem which generated this result transmitted reference range : <=200.0. The reference range was not used to interpret this result as normal/abnormal . Triglyceride (test 188 mg/dL <150 H code = 79825668) HDL (test code = 43.0 mg/dL See Reference 2085-05) Range Narrative. LDL (test code = 85 mg/dL <100 Optimal: < 100.0 33789-3) mg/dLNear Optim al: 120-129 mg/dLBorderline : 130-159 mg/dLHi gh: 160-189 mg/dLVe ry High: >=190 mg/ dL Patient Fasting? (test Yes code = 73811072) Lab Interpretation Abnormal (test code = 88850-3) [facility] [id number] 06:59:00 Test Item Value Reference Range Interpretation Comments Cholesterol (test code 166.0 mg/dL See_Comment [Aut omated = 2092-3) message] The sy stem which generated this result transmitted reference range : <=200.0. The reference range was not used to interpret this result as normal/abnormal . Triglyceride (test 188 mg/dL <150 H code = 11782446) HDL (test code = 43.0 mg/dL See Reference 2085-05) Range Narrative. LDL (test code = 85 mg/dL <100 Optimal: < 100.0 03966-1) mg/dLNear Optim al: 120-129 mg/dLBorderline : 130-159 mg/dLHi gh: 160-189 mg/dLVe ry High: >=190 mg/ dL Patient Fasting? (test Yes code = 55300907) Lab Interpretation Abnormal (test code = 60749-9) [place] [address] LEAD [id number] 13:25:[address] [facility] Test Date: 2291-67-31Dhx Name: LAYLA KHAN Department: 5520Patient ID: [id number] Room: [address]Gender: M Chief Security Officer: : 1960 Requested By: RUPERT JENKINS Order Number: [id number] Jovani MD: arlene rea MeasurementsIntervals [place] Rate: 69 P: 65PR: 152 QRS: -4QRSD: 90 T: 52QT: 373 QTc: 400 Interpretive StatementsSINUS RHYTHMElectronically Signed On 06-06-2020 13:25:51 CDT by arlene rea [place] [address] LEAD [id number] 13:25:[address] [facility] Test Date: 2218-10-42Txl Name: LAYLA KHAN Department: [id number] ID: [id number] Room: [address] 02Gender: M Chief Security Officer: : 1960 RequestedBy: RUPERT JENKINS Order Number: [id number] Reading MD: arlene rea MeasurementsIntervals [place] Rate: 69 P: 65PR: 152 QRS: - 4QRSD: 90 T: 52QT: 373 QTc: 400 Interpretive StatementsSINUS RHYTHMElectronically Signed On 06-06-2020 13:25:51 CDT by arlene rea [place] [address] LEAD [id number] 04:06:[address] [facility] Test Date: 4179-00-38Omt Name: LAYLA KHAN Department: 5520Patient ID: [id number] Room: Gender: M Chief Security Officer: : 1960 Requested By: CHRISTEL MONTOYA Order Number: [id number] Reading MD: Melanie Brooks M.D. MeasurementsIntervals [place] Rate: 94 P: 68PR: 145 QRS: -30QRSD: 93 T: 52QT: 334 QTc: 418 Interpretive StatementsSINUS RHYTHMBORDERLINE LEFT AXIS DEVIATIONINCOMPLETE RIGHT BUNDLE BRANCH BLOCKElectronically Signed On 06-06-2020 4:06:27 CDT by Melanie Brooks M.D.[place] [address] LEAD [id number] 04:06:[address] [facility] Test Date: 7224-84-64Ybn Name: LAYLA KHAN Department: 5520Patient ID: [id number] Room: Gender: M Chief Security Officer: : 1960 Requested By: CHRISTEL MONTOYA Order Number: [id number] Reading MD: Melanie Brooks M.D. MeasurementsIntervals [place] Rate: 94 P: 68PR: 145 QRS: - 30QRSD: 93 T: 52QT: 334 QTc: 418 Interpretive StatementsSINUS RHYTHMBORDERLINE LEFT AXIS DEVIATIONINCOMPLETE RIGHT BUNDLE BRANCH BLOCKElectronically Signed On 06-06-2020 4:06:27 CDT by Melanie Brooks M.D.[facility]: unless the patient is HIV [id number] 02:00:00 Test Item Value Reference Range Interpretation Comments HIV Ag/Ab Combo (test code = Negative Negative 90349-3) Lab Interpretation (test code = Normal 18312-8) [facility]: unless the patient is HIV [id number] 02:00:00 Test Item Value Reference Range Interpretation Comments HIV Ag/Ab Combo (test code = Negative Negative 72687-7) Lab Interpretation (test code = Normal 02819-0) [id number] 01:43:00 Test Item Value Reference Range Interpretation Comments Lipase (test code = 36058280) 20 U/L Lab Interpretation (test code = Normal 55178-5) [id number] 01:43:00 Test Item Value Reference Range Interpretation Comments Bilirubin, Total (test code = 0.3 mg/dL 0.2-1.2 2885-2) Alkaline Phosphatase (test code = 71 U/L 34-104 83988061) AST (test code = 66892589) 25 U/L 13-39 Direct Bilirubin (test code = 0.1 mg/dL 0-0.2 1967-7) ALT (test code = 76068185) 25 U/L 7-52 Albumin (test code = 10118-5) 4.2 g/dL 4.2-5.5 Lab Interpretation (test code = Normal 04683-6) [id number] 01:43:00 Test Item Value Reference Range Interpretation Comments Lipase (test code = 77135153) 20 U/L Lab Interpretation (test code = Normal 18794-5) [id number] 01:43:00 Test Item Value Reference Range Interpretation Comments Bilirubin, Total (test code = 0.3 mg/dL 0.2-1.2 2885-2) Alkaline Phosphatase (test code = 71 U/L 34-104 85251545) AST (test code = 28420624) 25 U/L 13-39 Direct Bilirubin (test code = 0.1 mg/dL 0-0.2 1967-7) ALT (test code = 44155701) 25 U/L 7-52 Albumin (test code = 42900-3) 4.2 g/dL 4.2-5.5 Lab Interpretation (test code = Normal 53791-6) [facility]
[2022-05-13] MEDS ORDERED: DERMABOND SKIN ADHESIVE TOP ONE (16:48)
[2022-05-13] MEDS ORDERED: LIDOCAINE 1% MPF 5 ML VIAL ONE (16:49)
[2022-05-13] MEDS ORDERED: KETOROLAC 30 MG/ML INJ ONE (17:09)
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
--- NOTE | 2022-05-13 17:21 | RAD REPORT ---
EXAM DESCRIPTION: RAD - Ankle Right 3 View - 05/13/2022 5:11 pm CLINICAL HISTORY: Pain COMPARISON: No comparisons FINDINGS/IMPRESSION: No acute fracture. No malalignment. Calcaneal spurring. Degenerative changes ar e present at the medial malleolus
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
[2022-05-13] MEDS ORDERED: TETANUS & DIPHTHERIA TOX,ADULT 0.5 ML VIAL ONE (17:39)
[2022-05-13 19:53] VITALS: BP 141/96; TEMP 98; O2SAT 98
== END 2022-05-13 17:51 | disposition home or self-care (01) ==
LOC: ER 16:25
PROC: 0CQ1XZZ Repair Lower Lip, External Approach (ICD-10-PCS; principal; 2022-05-13)
DX: S01.81XA Laceration without foreign body of other part of head, initial encounter (principal); S01.511A Laceration without foreign body of lip, initial encounter; S01.512A Laceration without foreign body of oral cavity, initial encounter; S93.401A Sprain of unspecified ligament of right ankle, initial encounter; I10 Essential (primary) hypertension; Z23 Encounter for immunization; Z88.1 Allergy status to other antibiotic agents
CPT/HCPCS: 70450; 72125; 90471; 90714; 96372; 99283; J2001